=== PATIENT | male | born 1960 | race Caucasian/White ===

== ENCOUNTER 2017-04-08 11:48 | Emergency (ER) | payer OTHER ==
[2017-04-08 15:00] LABS: BASOPHIL % 0.6 % (0-2); PLATELET COUNT 231 x10^3mcL (130-400); RED CELL DISTRIBUTION WIDTH 13.8 % (11.5-14.5)
[2017-04-08 15:27] LABS: CALCIUM 9.3 mg/dL (8.5-10.1); CARBON DIOXIDE 32.2 mmol/L (21-32); CHLORIDE SERUM 102 mmol/L (98-107); CREATININE SERUM 0.8 mg/dL (0.7-1.3); GFR1 > 60 mL/min; GLUCOSE SERUM 102 mg/dL (74-106); POTASSIUM SERUM 3.8 mmol/L (3.5-5.1); SODIUM SERUM 139 mmol/L (136-145)
[2017-04-08 15:32] LABS: ALBUMIN 3.8 g/dL (3.4-5.0); ALKALINE PHOSPHATASE 71 U/L (46-116); ALT/SGPT 29 U/L (16-63); AST/SGOT 15 U/L (15-37); BILIRUBIN TOTAL 0.7 mg/dL (0.20-1.00); CHOLESTEROL 211 mg/dL (<200); HDL CHOLESTEROL 65 mg/dL (40-60); PHOSPHOROUS 3.9 mg/dL (2.5-4.9); TOTAL PROTEIN, SERUM 7.3 g/dL (6.4-8.2); URIC ACID 6.7 mg/dL (3.5-7.2)
[2017-04-08 17:33] VITALS: BP 169/99
== END 2017-04-08 17:33 | disposition home or self-care (01) ==
LOC: ED 11:48
PROVIDERS: Emergency Medicine
DX: I10 Essential (primary) hypertension (principal); F41.9 Anxiety disorder, unspecified
CPT/HCPCS: 83880

== ENCOUNTER 2018-12-27 13:49 | Emergency (ER) | payer OTHER ==
[~2018-12-27] VITALS: Ht 180.3 cm; Wt 73.9 kg
[2018-12-27 14:00] VITALS: Ht 180.3 cm; Wt 73.9 kg
[2018-12-27 14:49] LABS: BASOPHIL % 0.5 % (0-2); PLATELET COUNT 225 x10^3mcL (130-400); RED CELL DISTRIBUTION WIDTH 12.8 % (11.5-14.5)
[2018-12-27 14:59] LABS: CALCIUM 8.7 mg/dL (8.5-10.1); CARBON DIOXIDE 31.9 mmol/L (21-32); CHLORIDE SERUM 102 mmol/L (98-107); CREATININE SERUM 0.9 mg/dL (0.7-1.3); GFR1 > 60 mL/min; GLUCOSE SERUM 112 mg/dL (74-106); POTASSIUM SERUM 3.7 mmol/L (3.5-5.1); SODIUM SERUM 139 mmol/L (136-145)
[2018-12-27 15:04] LABS: ALBUMIN 3.5 g/dL (3.4-5.0); ALKALINE PHOSPHATASE 77 U/L (46-116); ALT/SGPT 28 U/L (16-63); AST/SGOT 18 U/L (15-37); BILIRUBIN TOTAL 0.4 mg/dL (0.20-1.00); CHOLESTEROL 199 mg/dL (<200); HDL CHOLESTEROL 55 mg/dL (40-60); TOTAL PROTEIN, SERUM 7.2 g/dL (6.4-8.2)
[2018-12-27 17:19] VITALS: BP 193/109
== END 2018-12-27 17:19 | disposition home or self-care (01) ==
LOC: ED 13:49
PROVIDERS: Emergency Medicine
DX: R53.1 Weakness (principal); R51 Headache; R63.0 Anorexia; I10 Essential (primary) hypertension; E11.9 Type 2 diabetes mellitus without complications; F41.9 Anxiety disorder, unspecified; E78.00 Pure hypercholesterolemia, unspecified
CPT/HCPCS: 36415; 82962; G0480

== ENCOUNTER 2018-12-31 01:59 | Inpatient (IN) | payer OTHER ==
[2018-12-31] VITALS (7 sets, daily range): BP systolic 143–186; BP diastolic 85–102; Ht 170.2 cm; Wt 76.2 kg
[~2018-12-31] VITALS: Ht 170.2 cm; Wt 76.2 kg
--- NOTE | 2018-12-31 02:12 | NUR ---
PT PRESENTED TO THE ED WITH C/O GEN WEAKNESS X1 WEEK. PT WAS HERE ON SUNDAY FOR GENERALIZED WEAKNESS AND WAS PRESCRIBED LISINOPRIL, PT HAS NOT BEEN TAKING HIS MEDS. PT WAS SUPPOSE TO VISIT HIS PCP TOMORROW BUT FELT HIS WEAKNESS WAS GETTING WORSE. PT IS ABLE TO AMBULATE AT BASELINE. PT'S GAIT AT THIS TIME IS SLOW AND NEEDS ASSISTANCE AMBUALTING. PT DENIES ANY KO OR BLURRY VISION. PT STS THAT HE FEELS LIKE HIS LEGS ARE SHAKING. PT IS A/OX4.
[2018-12-31 02:44] LABS: BASOPHIL % 0.7 % (0-2); CALCIUM 8.7 mg/dL (8.5-10.1); CARBON DIOXIDE 30.9 mmol/L (21-32); CHLORIDE SERUM 105 mmol/L (98-107); CREATININE SERUM 0.9 mg/dL (0.7-1.3); GFR1 > 60 mL/min; GLUCOSE SERUM 119 mg/dL (74-106); POTASSIUM SERUM 3.3 mmol/L (3.5-5.1); RED CELL DISTRIBUTION WIDTH 12.3 % (11.5-14.5); SODIUM SERUM 142 mmol/L (136-145)
[2018-12-31 02:46] LABS: PLATELET COUNT 231 x10^3mcL (130-400)
[2018-12-31 02:49] LABS: ALKALINE PHOSPHATASE 63 U/L (46-116); ALT/SGPT 29 U/L (16-63); AST/SGOT 21 U/L (15-37); BILIRUBIN TOTAL 0.29 mg/dL (0.20-1.00); TOTAL PROTEIN, SERUM 6.2 g/dL (6.4-8.2)
--- NOTE | 2018-12-31 02:50 | NUR ---
PT TAKEN TO CT-SCAN VIA NELA
--- NOTE | 2018-12-31 03:29 | NUR ---
BP 183/96, MAP 136. DR. OSPINA MADE AWARE
--- NOTE | 2018-12-31 03:38 | NUR ---
BP 183/96, MAP 136. DR. OSPINA MADE AWARE
--- NOTE | 2018-12-31 03:40 | NUR ---
REPORT GIVEN TO BRENDA FOR CONTINUITY OF CARE
--- NOTE | 2018-12-31 04:00 | NUR ---
RECEIVED PT FROM ED VIA [facility], CAME IN DUE TO GENERALIZED WEAKNESS X1 WEEK. AAOX2-3, PT FORGETFUL. ABLE TO FOLLOW SIMPLE COMMANDS. NO SOB NOTED, LUNG SOUNDS CTA. DENIES CHEST PAIN/PRESSURE. DENIES ABDOMINAL DISCOMFORT. BOWEL SOUNDS ACTIVE. URINE INCONTINENT. W/ IV SITE ON THE RAC GAUGE 2O, PATENT AND INTACT. SIDE RAILS UPX2. CALL LIGHT ON REACH. IY=[id number]/102. WILL CONT TO MONITOR
[2018-12-31 04:02] LABS: microscopic required? NO
[2018-12-31 04:14] LABS: UA SPECIFIC GRAVITY 1.015 (1.005-1.035); urine erythrocyte NEGATIVE (NEGATIVE)
[2018-12-31 04:16] LABS: AMPHETAMINE QUAL UR NONE DETECTED (See below)
--- NOTE | 2018-12-31 04:21 | NUR ---
MEDICATED W/ LISINOPRIL 20 MG PO AND HCTZ 25 MG PO ORDERED FOR VF=[id number]
[2018-12-31 04:24] LABS: CHOLESTEROL/HDL RATIO 3.7; MAGNESIUM 1.9 mg/dL (1.8-2.4)
[2018-12-31 04:29] LABS: T3 TOTAL 1.17 ng/mL
[2018-12-31 04:30] LABS: FREE T4 0.96 ng/dL (0.76-1.46)
--- NOTE | 2018-12-31 05:44 | NUR ---
PT LYING IN BED, HAS HIS EYES CLOSED BUT EASILY AROUSABLE TO VERBAL STIMULI. NO SOB/PAIN NOTED. SIDE RAILS UPX2. CALL LIGHT ON REACH. NEEDS ARE ATTENDED. WILL CONT TO MONITOR
[2018-12-31 06:44] LABS: BASOPHIL % 0.7 % (0-2); PLATELET COUNT 188 x10^3mcL (130-400)
--- NOTE | 2018-12-31 07:05 | NUR ---
BEDSIDE REPORT GIVEN TO RUTH ANN FOR CONTINUITY OF CARE
[2018-12-31 07:08] LABS: CALCIUM 9.3 mg/dL (8.5-10.1); CARBON DIOXIDE 27.8 mmol/L (21-32); CHLORIDE SERUM 104 mmol/L (98-107); CREATININE SERUM 0.8 mg/dL (0.7-1.3); GFR1 > 60 mL/min; GLUCOSE SERUM 100 mg/dL (74-106); POTASSIUM SERUM 3.5 mmol/L (3.5-5.1); SODIUM SERUM 140 mmol/L (136-145)
[2018-12-31] MEDS ORDERED: ZESTRIL20 MG PO (15:14)
--- NOTE | 2018-12-31 15:15 | NUR ---
CALLED PT PHARMACY TO RECONCILE HIS MEDICATION AND SPOKE TO RITA FROM [facility] IN [place], RITA HAD VERIFIED THAT PT IS CURRENTLY TAKING LISINIPRIL 20MG DAILY AND THE LAST TIME PT HAD [facility]IZTALK ADMINISTRATOR HIS REFIL MEDICATION WAS THREE DAYS AGO. PAGED (RESIDENT) ASSIGNED TO THIS PT, DR. VAZQUEZ COVERING FOR CALLED AND MADE HER AWARE OF HOME MED.
--- NOTE | 2018-12-31 21:03 | NUR ---
PATIENT CURRENTLY GOING TO MRI BRAIN WITHOUT CONTRAST VIA WHEELCHAIR ACCOMPANIED BY TECH. PATIENT CURRENTLY STABLE WITH NO S/SX OF DISTRESS NOTED.
--- NOTE | 2018-12-31 23:26 | NUR ---
DR. ESQUIVEL MADE AWARE THAT PATIENT'S BLOOD PRESSURE HAS BEEN IN THE HIGH 160S SYSTOLIC AND MOST RECENT BLOOD PRESSURE 170/100. NO NEW ORDERS RECEIVED.
--- NOTE | 2019-01-01 01:02 | NUR ---
PATIENT QUIETLY SLEEPING, BREATHING EVEN AND UNLABORED. NO S/SX OF DISTRESS NOTED. CALL LIGHT WITHIN REACH.
[2019-01-01 05:37] VITALS: BP 156/94
[2019-01-01 06:55] LABS: BASOPHIL % 0.5 % (0-2); PLATELET COUNT 193 x10^3mcL (130-400); RED CELL DISTRIBUTION WIDTH 12.9 % (11.5-14.5)
[2019-01-01 07:01] LABS: CALCIUM 9.2 mg/dL (8.5-10.1); CARBON DIOXIDE 30.7 mmol/L (21-32); CHLORIDE SERUM 103 mmol/L (98-107); CREATININE SERUM 0.8 mg/dL (0.7-1.3); GFR1 > 60 mL/min; GLUCOSE SERUM 97 mg/dL (74-106); POTASSIUM SERUM 3.8 mmol/L (3.5-5.1); SODIUM SERUM 139 mmol/L (136-145)
--- NOTE | 2019-01-01 07:40 | NUR ---
PATIENT SLEEPING IN BED, AROUSABLE. RED CLIFF BILATERAL. DENIES CHEST PAIN, DIZZINESS. MILD GENERALIZED WEAKNESS NOTED UPON AMBULATION. IV TO RAC SALINE LOCK, CDI, NO ERYTHEMA, EDEMA OR PAIN AT SITE. INSTRUCTED PATIENT TO CALL FOR ASSISTANCE IF NEEDED, CALL LIGHT WITHIN REACH, BED IN LOW POSITION, SIDE RAILS X2 FOR SAFETY PRECAUTION. WILL CONTINUE TO MONITOR FOR CHANGES.
[2019-01-01 09:45] VITALS: BP 157/93
--- NOTE | 2019-01-01 15:00 | NUR ---
PATIENT SITTING UP IN BED, NO C/O PAIN, DENIES KO, DIZZINESS. FAMILY AT BEDSIDE. WILL CONTINUE TO MONITOR. CALL LIGHT WITHIN REACH, BED LOW POSITION FOR SAFETY PRECAUTION.
[2019-01-01 18:05] VITALS: BP 140/85
--- NOTE | 2019-01-01 19:00 | NUR ---
PATIENT RESTING IN BED, NO ACUTE CHANGES THROUGH OUT SHIFT. PATIENT STABLE AT THIS TIME. IV TO RAC SALINE, CDI AND PATENT. PATIENT DENIES PAIN. NO SOB NOTED ON ROOM AIR. PATIENT DENIES KO. WILL ENDORSE REPORT TO NIGHT NURSE.
--- NOTE | 2019-01-01 21:01 | NUR ---
Awake and verbally responsive. No respiratory distress noted on room air. Denies pain. Denies n/v. Moves all extremities well. Generalized weakness noted. Safety maintained. CAll light within reach. Will cont.to monitor.
[2019-01-01 21:34] VITALS: BP 148/78
--- NOTE | 2019-01-02 04:27 | NUR ---
Afebrile. No significant change in condition noted. No neurological deficits noted. In no apparent distress.
[2019-01-02 06:01] VITALS: BP 158/88
[2019-01-02 06:02] LABS: BASOPHIL % 0.5 % (0-2); PLATELET COUNT 190 x10^3mcL (130-400); RED CELL DISTRIBUTION WIDTH 12.9 % (11.5-14.5)
[2019-01-02 06:35] LABS: CALCIUM 8.8 mg/dL (8.5-10.1); CARBON DIOXIDE 26.3 mmol/L (21-32); CHLORIDE SERUM 104 mmol/L (98-107); CREATININE SERUM 0.8 mg/dL (0.7-1.3); GFR1 > 60 mL/min; GLUCOSE SERUM 97 mg/dL (74-106); PHOSPHOROUS 3.6 mg/dL (2.5-4.9); POTASSIUM SERUM 3.5 mmol/L (3.5-5.1); SODIUM SERUM 140 mmol/L (136-145)
--- NOTE | 2019-01-02 08:00 | NUR ---
RECEIVED PT IN BED. ASSESSED AND DOCUMENTED. DENIES PAIN THIS TIME. STABLE. SAFTEY PRECAUTIONS ARE IN PLACE. WILL MONITOR.
[2019-01-02 10:00] VITALS: BP 139/74
--- NOTE | 2019-01-02 11:00 | NUR ---
PT IS STABLE. P.T AMBULATED THE PT. DENIES PAIN THIS TIME.
[2019-01-02 13:42] VITALS: BP 134/59
--- NOTE | 2019-01-02 14:00 | NUR ---
PT RESTING IN BED COMFORTABLY. DENIES ANY PAIN STABLE. HAD LUNCH.
[2019-01-02 14:49] VITALS: BP 134/75
[2019-01-02 18:22] VITALS: BP 158/88
--- NOTE | 2019-01-02 19:01 | NUR ---
PT RESTING IN BED COMFORTABLY. DENIES ANY PAIN. STABLE. GAVE REPORT TO ELECTRONICS TEST ENGINEER NURSE.
--- NOTE | 2019-01-02 20:20 | NUR ---
Awake and verbally responsive. No respiratory distress noted on room air. Denies pain. Denies n/v. Stated he's hungry. Offered a sandwich and ate. No weakness noted on all extremities. Will cont. to monitor. Call light within reach.
[2019-01-02 21:32] VITALS: BP 158/87
--- NOTE | 2019-01-03 04:22 | NUR ---
Afebrile. No significant change in condition noted. Denies pain. Asleep at this time. In no apparent distress.
[2019-01-03 05:53] VITALS: BP 142/85
[2019-01-03 06:16] LABS: BASOPHIL % 0.7 % (0-2); PLATELET COUNT 205 x10^3mcL (130-400); RED CELL DISTRIBUTION WIDTH 12.9 % (11.5-14.5)
[2019-01-03 06:50] LABS: CALCIUM 8.8 mg/dL (8.5-10.1); CARBON DIOXIDE 27.2 mmol/L (21-32); CHLORIDE SERUM 106 mmol/L (98-107); CREATININE SERUM 0.8 mg/dL (0.7-1.3); GFR1 > 60 mL/min; GLUCOSE SERUM 96 mg/dL (74-106); PHOSPHOROUS 3.9 mg/dL (2.5-4.9); POTASSIUM SERUM 3.8 mmol/L (3.5-5.1); SODIUM SERUM 142 mmol/L (136-145)
--- NOTE | 2019-01-03 07:40 | NUR ---
PT IN BED SLEEPING. A/OX4. MED SURG. DENIES CHEST PAIN/PRESSURE. RESPIRATIONS EQUAL AND UNLABORED ON RA. NO ACUTE RESP DISTRESS NOTED. IV SALINE LOCKED TO RAC. NO REDNESS OR SWELLING NOTED. PT DENIES ANY PAIN AT THIS TIME. WILL CONTINUE TO MONITOR. CALL LIGHT IN REACH. BED IN LOWEST POSITION.
[2019-01-03 08:30] VITALS: BP 145/75
--- NOTE | 2019-01-03 08:44 | NUR ---
LEANNE AVALOS PHYSICAL THERAPIST PT IS OKAY TO D/C PHYSICAL THERAPY.
--- NOTE | 2019-01-03 10:01 | NUR ---
PT IN BED RESTING. NO ACUTE RESP DISTRESS NOTED. GIVEN PO MEDS. TOLERATED WELL. DENIES ANY PAIN AT THIS TIME. WILL CONTINUE TO MONITOR. CALL LIGHT IN REACH. BED IN LOWEST POSITION.
[2019-01-03] MEDS ORDERED: ATORVASTATIN CA40 M1 PO (11:09)
[2019-01-03] MEDS ORDERED: ASP325 PO (11:09)
[2019-01-03] MEDS ORDERED: LISINOPRIL40 MG PO (11:09)
[2019-01-03] MEDS ORDERED: NOR10 PO (11:09)
[2019-01-03] MEDS ORDERED: APR25 PO (11:09)
[2019-01-03 11:26] VITALS: BP 145/75
--- NOTE | 2019-01-03 13:19 | NUR ---
PT SITTING UP IN BED. DENIES ANY PAIN AT THIS TIME. PT WAITING FOR DAUGHTER TO PICK HIM UP. RESPIRATIONS EQUAL AND UNLABORED ON RA. NO ACUTE RESP DISTRESS NOTED. WILL CONTINUE TO MONITOR. CALL LIGHT IN REACH. BED IN LOWEST POSITION.
[2019-01-03 13:58] VITALS: BP 155/94
--- NOTE | 2019-01-03 14:40 | NUR ---
PT GIVEN DISCHARGE INSTRUCTIONS. PT INSTRUCTED TO MAKE A FOLLOW UP APPOINTMENT WITH PCP. INFORMED PT TO FOLLOW UP WITH [facility] FOR PHYSICAL THERAPY AT HOME. PT GIVEN PRESCRIPTIONS AND INSTRUCTED ON HOW TO TAKE MEDICATIONS. PT VERBALIZED UNDERSTANDING. ALL QUESTIONS AND CONCERNS ADDRESSED. IV TO LAC REMOVED CATHETER INTACT. NO REDNESS OR SWELLING NOTED. PT TAKEN OFF FLOOR BY TA.
== END 2019-01-03 14:48 | disposition home or self-care (01) | DRG 304 ==
LOC: ED 01:59 → DU 03:21 → ED 03:21 → MU 03:21
PROVIDERS: Emergency Medicine; Internal Medicine; ADMIT Family Medicine
DX: I16.0 Hypertensive urgency (principal); N17.0 Acute kidney failure with tubular necrosis; G45.9 Transient cerebral ischemic attack, unspecified; T46.5X6A Underdosing of other antihypertensive drugs, initial encounter; R26.81 Unsteadiness on feet; E87.6 Hypokalemia; R26.0 Ataxic gait; I10 Essential (primary) hypertension; E78.5 Hyperlipidemia, unspecified; F10.21 Alcohol dependence, in remission; Z68.26 Body mass index [BMI] 26.0-26.9, adult; Z91.14 Patient's other noncompliance with medication regimen; Z86.73 Personal history of transient ischemic attack (TIA), and cerebral infarction without residual deficits; Z91.128 Patient's intentional underdosing of medication regimen for other reason; Y92.009 Unspecified place in unspecified non-institutional (private) residence as the place of occurrence of the external cause
CPT/HCPCS: 83880; 84439; 97116-GP; 97530-GP; G0480; Q0092